=== PATIENT | male | born 1985 | race African-American/Black ===

== ENCOUNTER 2018-03-31 12:22 | Emergency (ER) | payer OTHER ==
[~2018-03-31] VITALS: Ht 162.6 cm; Wt 70.7 kg
[2018-03-31] MEDS ORDERED: ZITHROMAX Z-PA250 MG PO (14:58)
[2018-03-31] MEDS ORDERED: PREDNISONE10 M1 PO (14:58)
[2018-03-31] MEDS ORDERED: VENTOLIN HFA18 GM IH (14:58)
[2018-03-31 15:49] VITALS: BP 140/84
== END 2018-03-31 15:49 | disposition home or self-care (01) ==
LOC: EDBD 12:22 → EME 12:22
DX: J06.9 Acute upper respiratory infection, unspecified (principal); F41.9 Anxiety disorder, unspecified; F20.9 Schizophrenia, unspecified; F17.200 Nicotine dependence, unspecified, uncomplicated
CPT/HCPCS: 71046; 93005; 99281; 99283